=== PATIENT | male | born 1935 | race Caucasian/White ===

== ENCOUNTER → 2016-08-03 | Outpatient (CLI) | payer OTHER, MEDICARE ==
[2014-09-24 16:34] VITALS: BP 150/67
[2016-08-03 14:48] LABS: CREATININE 0.94 mg/dL (0.70-1.30)
--- NOTE | 2016-08-03 18:12 | MRI ---
Indication: Mental status changes . Exam: MRI brain with and without contrast . Technique: Routine multiplanar multisequence imaging was performed through the brain before and afte r administration of 13 cc of Omniscan without complication Findings: The ventricles are mildly enlarged and there is diffuse mild prominence of the cortical ruiz lci. There is no abnormal signal on the diffusion-weighted data set which would suggest any type of acute ischemia. The midline structures are unremarkable. The visualized vascular structures are unre markable. There is no extra-axial fluid collection or mass. The 7th and 8th nerve complexes are symm etric and normal signal intensity. There is mild mucosal thickening scattered in the mastoid air vita ls on the right. There are numerous punctate and confluent areas of abnormal signal throughout the p eriventricular white matter bilaterally. No enhancing lesion or mass is seen. Impression: Mild atrophy and moderate chronic microischemic changes throughout the deep white matter with no acu te intracranial abnormality seen and specifically, no enhancing lesion or mass identified. 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 Reported By:
== END ==
LOC: RAD 14:18
PROVIDERS: ATTEND Internal Medicine
DX: G31.84 Mild cognitive impairment of uncertain or unknown etiology (principal); R53.83 Other fatigue; R06.09 Other forms of dyspnea
CPT/HCPCS: 36415; 70553; 82565; 84520